=== PATIENT | male | born 1970 | race Caucasian/White ===

== ENCOUNTER → 2022-07-19 14:19 | Outpatient (BNVA) | payer OTHER, SELFPAY | PROVIDERS: Visit Provider Orthopaedic Surgery | DX: M43.17 Spondylolisthesis, lumbosacral region (principal) | CPT/HCPCS: 72120 ==

== ENCOUNTER 2022-09-24 13:26 | Outpatient (CLI) | payer OTHER, BC, SELFPAY ==
--- NOTE | 2022-09-24 14:00 | XR_ITS ---
WS: [id number] SCREENING DEXA SCAN [email or web address] CLINICAL INFORMATION: low back pain, pars defect,eval for osteoporosis COMPARISON: None. FINDINGS: The L1-L4 bone mineral density measures 1.167 g/cm2. This corresponds to a T score score of -0.4 and Z score of -0.2. Left femoral neck bone mineral density measures 0.914 g/cm2. This corresponds to a T score of -1.3 an d Z score of -0.9. Right femoral neck bone mineral density measures 0.882 g/cm2. This corresponds to a T score -1.5of an d Z score of -1.1. Mean femoral neck bone mineral density measures 0.898 g/cm2. This corresponds to a T score of -1.4 an d Z score of -1.0. XR/XR DEXA axial skeleton* [id number] IMPRESSION: Normal bone mineralization lumbar spine. Osteopenia femoral necks. Patient's FRAX calculated 10 year probability for major osteoporotic fracture i s 4.5 % and osteoporotic hip fracture is 0.7%.
[2022-09-24 15:10] LABS: 25 Hydroxy Vitamin D 39 ng/mL (30-100)
== END 2022-09-24 13:27 | disposition home or self-care (01) ==
PROVIDERS: Visit Provider Orthopaedic Surgery
DX: M54.50 Low back pain, unspecified (principal); M43.06 Spondylolysis, lumbar region; M85.852 Other specified disorders of bone density and structure, left thigh; M85.851 Other specified disorders of bone density and structure, right thigh
CPT/HCPCS: 36415; 77080; 82306

== ENCOUNTER → 2023-05-30 15:19 | Outpatient (BNVA) | payer OTHER, BC, SELFPAY | PROVIDERS: Visit Provider Orthopaedic Surgery | DX: M43.17 Spondylolisthesis, lumbosacral region (principal); M47.816 Spondylosis without myelopathy or radiculopathy, lumbar region; M54.9 Dorsalgia, unspecified | CPT/HCPCS: 72100 ==